=== PATIENT | male | born 1965 | race Caucasian/White ===

== ENCOUNTER 2017-04-17 12:58 | Day surgery (SDC) | payer BC ==
[~2017-04-17] VITALS: Ht 172.7 cm; Wt 76.8 kg
[~2017-04-17 12:58] MED LIST: ASPIR 8181 M1 PO; BP; FISH OIL 1,0001 EAC7 PO; GLIMEPIRIDE2 MG PO; JANUVIA25 M1 PO; METFORMIN HCL1000 MG PO; STATIN PO; VITAMIN E400 UNIT PO; [UNRECOGNIZED DRUG - REMARK]
[2017-04-17] MEDS ORDERED: NEURONTIN300 MG PO (13:30)
[2017-04-17] MEDS ORDERED: LIPITOR20 MG PO (13:33)
[2017-04-17] MEDS ORDERED: KLOR-CON20 MEQ PO (13:34)
[2017-04-17] MEDS ORDERED: IRBESARTAN-HCT1 EACH PO (13:34)
[2017-04-17 13:45] VITALS: BP 140/90
[2017-04-17 17:36] VITALS: BP 126/77
[2017-04-17 18:32] VITALS: BP 127/82
== END 2017-04-17 18:30 | disposition home or self-care (01) ==
LOC: SDC 12:58
PROVIDERS: Internal Medicine
PROC: 08QF3ZZ Repair Left Retina, Percutaneous Approach (ICD-10-PCS; principal; 2017-04-17)
PROC: 08NF3ZZ Release Left Retina, Percutaneous Approach (ICD-10-PCS; principal; 2017-04-17)
PROC: 08B53ZZ Excision of Left Vitreous, Percutaneous Approach (ICD-10-PCS; principal; 2017-04-17)
PROC: 3E0C33Z Introduction of Anti-inflammatory into Eye, Percutaneous Approach (ICD-10-PCS; principal; 2017-04-17)
PROC: 3E0C329 Introduction of Other Anti-infective into Eye, Percutaneous Approach (ICD-10-PCS; principal; 2017-04-17)
DX: H33.002 Unspecified retinal detachment with retinal break, left eye (principal); I10 Essential (primary) hypertension; E11.9 Type 2 diabetes mellitus without complications; E78.2 Mixed hyperlipidemia; R00.0 Tachycardia, unspecified; Z79.82 Long term (current) use of aspirin; Z88.0 Allergy status to penicillin
CPT/HCPCS: 82948; J0690; J2250; J3010; J3300